=== PATIENT | male | born 1945 ===

== ENCOUNTER 2021-12-12 10:54 | Day surgery (SDC) | payer MEDICARE, BC ==
[~2021-12-12] VITALS: Ht 182.9 cm; Wt 88.6 kg
[2021-12-12] VITALS (8 sets, daily range): BP systolic 106–152; BP diastolic 47–78; PULSE 64–88; TEMP 97.5–98
[2021-12-12] MEDS ORDERED: CIPRO 250MG TA250 MG PO (12:03)
[2021-12-12] MEDS ORDERED: LIPITOR 40MG TA40 MG PO (12:03)
[2021-12-12] MEDS ORDERED: MYRBETR50MG PO (12:04)
[2021-12-12] MEDS ORDERED: ASPIRIN E.C. 8181 MG PO (12:06)
[2021-12-12] MEDS ORDERED: PREDFORTE5ML OU (12:07)
[2021-12-12] MEDS ORDERED: XALATAN EYE DROPS OU (12:07)
[2021-12-12] MEDS ORDERED: MOTRIN 200200 MG/TAB PO (12:08)
--- NOTE | 2021-12-12 17:37 | NUR ---
Report received at 1535 from PACU. Patient arrived to the floor at approximately 1545 post TURP due to enlarged prostate and urinary retention. Postop vital signs were initiated and are WNL. 20 fr 3-way chacon in place with 40cc ballon, output is light pink with no clots. CBI running at slow rate. Patient is tolerating oral intake well and is A&Ox4. No complaints of pain/discomfort. Daughter at the bedside. Call light within reach
--- NOTE | 2021-12-12 20:00 | NUR ---
Bedside shift report received, assumed care for night court magistrate. Assessment complete. A&Ox4. Denies nausea/shortness of breath. Rating pain 2/10 on pain scale to tip of penis-described as intermittent burning. Tylenol given per dr order. CBI running at a slow rate-light pink clear output noted. 1/2NS@75ml/hr to left hand infusing without difficulty. SCDs bilat. Plan of care discussed for this shift to include meds/pain control/output monitorin/calling for questions/concerns. Verbalizes understanding/denies needs. Call light in reach. Will monitor.
--- NOTE | 2021-12-12 21:21 | NUR ---
Tylenol given per dr order for pain to tip of penis-rating pain 5/10 on pain scale-described as burning. Will monitor.
--- NOTE | 2021-12-12 22:20 | NUR ---
Patient c/o pain. States he is unsure where the pain is-cant decide if its in the penis or the bladder. Tylenol did not help-levsin given. CBI continue to run at a slow rate with light pink return. Herbert knot still in place/tension on cath. Will continue to monitor.
--- NOTE | 2021-12-12 23:12 | NUR ---
Patient still c/o pain. Wanting to ambulate to see if that helps. Ambulated to door and back but did get a little lightheaded. Rating pain 8/24-[id number]-tp penis. Discussed morphine for breakthrough pain-states will try that. Given per dr order. CBI continues to run on a slow rate with light pink return. Will monitor.
[2021-12-13 00:11] VITALS: BP 145/67; PULSE 79; TEMP 98.4
--- NOTE | 2021-12-13 01:10 | NUR ---
Resting eyes closed. CBI continues at a slow rate with light pink output. NO s/s of distress noted. Will monitor.
[2021-12-13 03:55] VITALS: BP 127/67; PULSE 89; TEMP 985
--- NOTE | 2021-12-13 05:49 | NUR ---
Did not sleep much this shift even with HS medications. Received one dose of morphine early in shift for pain. Also received tylenol. C/O burning at tip of penis. Herbert knot remains in place. Price cath with tension. CBI at a slow rate all of shift with light pink return-occasional small clot noted. VS remained stable. Tolerating PO. IV to left hand with 1/2NS@75ml/hr. Denies current needs. Call light in reach. Will monitor.
--- NOTE | 2021-12-13 06:51 | NUR ---
Price cath primed and pulled at this time. Instilled 250mls of NS. REmoved 40mls from balloon. Instruction on 6 cup collection given.
[2021-12-13 07:19] VITALS: BP 126/80; PULSE 63; TEMP 97.2
--- NOTE | 2021-12-13 10:00 | NUR ---
PATIENT ALERT AND ORIENTED X3. PATIENT ASSESSMENT PERFORMED. VSS. IV ASSESSED. PATIENT IS AWAKE AND IN BED WAITING FOR BREAKFAST. HEART AND LUNG SOUNDS ARE CLEAR. NO EDEMA NOTED. MORNING MEDICATIONS GIVEN. PATIENT IN BED WITH CALL LIGHT NEAR.
--- NOTE | 2021-12-13 10:53 | NUR ---
SW met with the patient to discuss discharge plan. The patient lives alone in [place], [place]. He reports independence with ADLs and does not have any DME. The patient's PCP is Dr. Pino Escalante in [place] and he receives his medications from [facility]. The patient does not have a DPOA-HC in EMR, but he states that he does have one completed and he believes he designated both his children. He states that his is and that he has two children: Billie (ph#[phone]) and Virgilio. The patient plans on returning home upon discharge. No additional needs at this time. *Discharge plan: home*
[2021-12-13 11:34] VITALS: BP 153/60; PULSE 87; TEMP 97.6
--- NOTE | 2021-12-13 11:38 | NUR ---
First visit from the human resource statistician. No needs right now.
--- NOTE | 2021-12-13 13:45 | NUR ---
Patient only been able to void about 20mls. He has had urgency, but unable to void. made aware. Orders for 18F coude insertion. Unable to get urine return, clot noted. again notifed. Orders for 20G coude. Price inserted with assistance from dye house wheel operator. 1200 mls return. aware & he was going to notify daughter about plan of care.
[2021-12-13] MEDS ORDERED: FLOMAX 0.40.4 MG/CAP PO (13:50)
--- NOTE | 2021-12-13 18:35 | NUR ---
PATIENT DC'D WITH ROONEY CATHETER. PATIENT AND DAUGHTER GIVEN SUPPLIES TO CARE FOR ROONEY CATHETER AND INSTRUCTION ON PROPER CARE AND HYGIENE, WHEN TO EMPTY AND SIGNS AND SYMPTOMS TO CALL THE PROVIDER. PATIENT AND DAUGHTER GIVEN DISCHARGE INSTRUCTIONS, INFORMATION ON NEW MEDICATION, AND FOLLOW UP APPOINTMENTS. PATIENT AND DAUGHTER DENIED HAVING ANY QUESTIONS OR CONCERNS. ROONEY EMPTIED WITH 2900 ML AND SENT HOME EMPTY. PATIENT'S IV DC'D. PATIENT APPEARED SLIGHTLY CONFUSED. DAUGHTER CONTINUED TO CORRECT PATIENT WHEN HE SEEMED TO NOT UNDERSTAND OR BECOME INCREASINGLY CONFUSED. DAUGHTER INDICATED THAT, THAT WAS HIS NORMAL. PATIENT DISCHARGED HOME WITH DAUGHTER.
== END 2021-12-13 18:15 | disposition home or self-care (01) ==
LOC: SDCO 10:54 → SURG 16:09 → SDCO 12-13 18:15
DX: N50.1 Vascular disorders of male genital organs (principal); R33.8 Other retention of urine; I10 Essential (primary) hypertension; I25.10 Atherosclerotic heart disease of native coronary artery without angina pectoris; M19.90 Unspecified osteoarthritis, unspecified site; R35.0 Frequency of micturition; R39.15 Urgency of urination; R35.1 Nocturia; R39.12 Poor urinary stream; Z79.82 Long term (current) use of aspirin
CPT/HCPCS: OP; J0690; J2250; J2270; J2405; J2704; J3010